=== PATIENT | male | born 1975 | race Caucasian/White ===

== ENCOUNTER 2017-01-19 20:46 | Emergency (ER) | payer MEDICAID ==
[~2017-01-19] VITALS: Ht 190.5 cm; Wt 173.4 kg
[~2017-01-19 20:46] MED LIST: CYCL5TAB PO; ESOM40CA PO; HYDR-3307 PO; LORA10TA62 PO
[2017-01-19 21:03] VITALS: BP 142/85
== END 2017-01-19 22:12 | disposition home or self-care (01) ==
LOC: ED 22:00
DX: H66.001 Acute suppurative otitis media without spontaneous rupture of ear drum, right ear (principal); H60.91 Unspecified otitis externa, right ear; J45.909 Unspecified asthma, uncomplicated; M10.9 Gout, unspecified; E66.9 Obesity, unspecified; Z98.84 Bariatric surgery status; Z98.890 Other specified postprocedural states; Z88.1 Allergy status to other antibiotic agents; Z88.8 Allergy status to other drugs, medicaments and biological substances
CPT/HCPCS: 99283